=== PATIENT | male | born 1950 | race Caucasian/White ===

== ENCOUNTER 2019-01-26 07:34 | Outpatient (CLI) | payer OTHER ==
[~2019-01-26 07:34] MED LIST: CIPRO500 MG PO
[2019-01-30] MEDS ORDERED: CRESTOR10 MG PO (15:21)
[2019-01-30] MEDS ORDERED: ZIAC 5-6.25 MG1 EACH PO (15:21)
[2019-01-30] MEDS ORDERED: NORVASC2.5 M1 PO (15:21)
== END 2019-01-26 07:54 | disposition home or self-care (01) ==
LOC: LAB 07:34 → RAD 07:34 → LAB 07:54
DX: R19.4 Change in bowel habit (principal); K64.4 Residual hemorrhoidal skin tags; K64.3 Fourth degree hemorrhoids; I10 Essential (primary) hypertension

== ENCOUNTER 2019-02-08 05:18 | Day surgery (SDC) | payer OTHER ==
[~2019-02-08 05:18] MED LIST changes: +CRESTOR10 MG PO; +NORVASC2.5 M1 PO; +ZIAC 5-6.25 MG1 EACH PO
[2019-02-08] MEDS ORDERED: PERCOCET 5-3251 EACH PO (08:29)
[2019-02-08] MEDS ORDERED: RECTICARE30 GM TOP (08:29)
[2019-02-08] MEDS ORDERED: DICLOFENAC SODI75 MG PO (08:30)
== END 2019-02-08 14:30 | disposition home or self-care (01) ==
LOC: CIR.AMB 05:18
DX: K64.8 Other hemorrhoids (principal); K64.3 Fourth degree hemorrhoids; K64.4 Residual hemorrhoidal skin tags

== ENCOUNTER 2020-05-11 10:37 | Inpatient (IN) | payer OTHER ==
[~2020-05-11] VITALS: Ht 170.2 cm; Wt 140.0 kg
[~2020-05-11 10:37] MED LIST changes: +DICLOFENAC SODI75 MG PO; +PERCOCET 5-3251 EACH PO; +RECTICARE30 GM TOP
[2020-05-11] MEDS ORDERED: ZIAC 5-6.25 MG1 EACH (10:48)
[2020-05-11] MEDS ORDERED: AMLODIPINE-OLM1 EAC2 (10:48)
[2020-05-12] MEDS ORDERED: NORVASC2.5 MG (13:22)
[2020-05-12] MEDS ORDERED: XYZAL5 MG (13:22)
[2020-05-12] MEDS ORDERED: ASPERCREME76.5 GM (13:22)
[2020-05-12] MEDS ORDERED: ALLEGRA ALLERG180 MG (13:22)
== END 2020-05-13 09:31 | disposition home or self-care (01) | DRG 101 ==
LOC: ER 10:37 → MEDI 21:05
PROVIDERS: ADMIT Internal Medicine; ATTEND Internal Medicine
PROC: B020ZZZ Computerized Tomography (CT Scan) of Brain (ICD-10-PCS; principal; 2020-05-11)
PROC: B24BYZZ Ultrasonography of Heart with Aorta using Other Contrast (ICD-10-PCS; 2020-05-11)
PROC: B030ZZZ Magnetic Resonance Imaging (MRI) of Brain (ICD-10-PCS; 2020-05-11)
DX: R56.9 Unspecified convulsions (principal); I10 Essential (primary) hypertension; E78.5 Hyperlipidemia, unspecified; I69.30 Unspecified sequelae of cerebral infarction; Z20.822 Contact with and (suspected) exposure to COVID-19
CPT/HCPCS: 70544

== ENCOUNTER 2021-05-14 07:13 | Outpatient (CLI) | payer OTHER ==
[~2021-05-14 07:13] MED LIST changes: +ALLEGRA ALLERG180 MG; +AMLODIPINE-OLM1 EAC2; +ASPERCREME76.5 GM; +NORVASC2.5 MG; +XYZAL5 MG; +ZIAC 5-6.25 MG1 EACH
== END 2021-05-14 07:24 | disposition home or self-care (01) ==
LOC: LAB 07:13
DX: U07.1 COVID-19 (principal); B34.1 Enterovirus infection, unspecified

== ENCOUNTER 2021-05-15 07:23 | Outpatient (CLI) | payer OTHER | END 2021-05-15 07:27 | disposition home or self-care (01) | LOC: NUCLEAR 07:23 | PROVIDERS: ATTEND Internal Medicine | DX: I11.0 Hypertensive heart disease with heart failure (principal); I25.10 Atherosclerotic heart disease of native coronary artery without angina pectoris ==

== ENCOUNTER 2021-06-02 08:01 | Outpatient (CLI) | payer OTHER | END 2021-06-02 08:19 | disposition home or self-care (01) | LOC: NUCLEAR 08:01 | DX: C76.0 Malignant neoplasm of head, face and neck (principal) ==

== ENCOUNTER 2021-09-14 10:51 | Outpatient (CLI) | payer OTHER | END 2021-09-14 11:01 | disposition home or self-care (01) | LOC: TOM 10:51 | PROVIDERS: ATTEND Internal Medicine | DX: J44.9 Chronic obstructive pulmonary disease, unspecified (principal); R09.02 Hypoxemia; R91.8 Other nonspecific abnormal finding of lung field ==

== ENCOUNTER 2022-02-08 14:06 | Emergency (ER) | payer OTHER ==
[~2022-02-08] VITALS: Ht 177.8 cm; Wt 83.5 kg
== END 2022-02-08 19:35 | disposition home or self-care (01) ==
LOC: ER 14:06
DX: S29.9XXA Unspecified injury of thorax, initial encounter (principal); V03.99XA Pedestrian with other conveyance injured in collision with car, pick-up truck or van, unspecified whether traffic or nontraffic accident, initial encounter; Y93.55 Activity, bike riding; Y92.413 State road as the place of occurrence of the external cause; S69.91XA Unspecified injury of right wrist, hand and finger(s), initial encounter; E78.00 Pure hypercholesterolemia, unspecified; E03.9 Hypothyroidism, unspecified; I10 Essential (primary) hypertension; S02.19XA Other fracture of base of skull, initial encounter for closed fracture

== ENCOUNTER 2022-09-28 13:29 | Inpatient (IN) | payer OTHER ==
[~2022-09-28] VITALS: Ht 162.6 cm; Wt 68.0 kg
[2022-09-28] MEDS ORDERED: KEPPRA500 MG PO (13:53)
== END 2022-10-05 21:49 | disposition home or self-care (01) | DRG 195 ==
LOC: ER 13:29 → ICU-2 17:17 → ICU 09-29 17:49 → MEDJ 10-01 21:25
PROVIDERS: ADMIT Internal Medicine; ATTEND Internal Medicine
PROC: B020ZZZ Computerized Tomography (CT Scan) of Brain (ICD-10-PCS; principal; 2022-09-28)
PROC: B24BYZZ Ultrasonography of Heart with Aorta using Other Contrast (ICD-10-PCS; 2022-09-28)
PROC: BW241ZZ Computerized Tomography (CT Scan) of Chest and Abdomen using Low Osmolar Contrast (ICD-10-PCS; 2022-09-29)
DX: J18.9 Pneumonia, unspecified organism (principal); R56.9 Unspecified convulsions; J44.9 Chronic obstructive pulmonary disease, unspecified; R77.8 Other specified abnormalities of plasma proteins; E78.00 Pure hypercholesterolemia, unspecified; I10 Essential (primary) hypertension; F17.290 Nicotine dependence, other tobacco product, uncomplicated; F12.90 Cannabis use, unspecified, uncomplicated; F10.90 Alcohol use, unspecified, uncomplicated

== ENCOUNTER 2022-11-06 10:29 | Outpatient (CLI) | payer OTHER ==
[~2022-11-06 10:29] MED LIST changes: +KEPPRA500 MG PO
== END 2022-11-06 10:34 | disposition home or self-care (01) ==
LOC: RAD 10:29
PROVIDERS: ATTEND Internal Medicine Pulmonary Disease
DX: J44.1 Chronic obstructive pulmonary disease with (acute) exacerbation (principal)

== ENCOUNTER 2023-02-26 10:54 | Inpatient (IN) | payer OTHER ==
[~2023-02-26] VITALS: Ht 177.8 cm; Wt 79.4 kg
[2023-02-26 11:28] LABS: HEMATOCRIT 44.9 % (39.0-48.0); HEMOGLOBIN 14.9 g/dL (13-16.00); MEAN CELL VOLUME 90.3 fL (80.0-100.00); MEAN CORPUSCULAR HGB CONC 33.3 g/dl (32.0-36.0); PLATELET COUNT 295 K/uL (150-450); RED BLOOD COUNT 4.97 M/uL (4.00-6.00); RED CELL DISTRIBUTION WIDTH 14.5 % (11.5-14.5)
[2023-02-26] MEDS ORDERED: ADULT LOW DOSE81 M1 PO (11:37)
[2023-02-26 11:46] LABS: ALBUMIN 4.3 gm/dL (3.4-5.0); BILIRUBIN TOTAL 0.54 mg/dL (0.3-1.2); CALCIUM 8.9 mg/dL (8.5-10.1); CREATININE SERUM 1.35 mg/dL (0.70-1.30); GFR 51.66; POTASSIUM 4.06 mEq/L (3.5-5.1); TOTAL PROTEIN 8.3 gm/dL (6.4-8.2)
[2023-02-26 11:47] LABS: INR 1.04; PARTIAL THROMBOPLASTIN TIME 25.7 SECONDS (22.0-34.0); PROTHROMBIN TIME 10.9 SECONDS (9.0-11.5)
[2023-02-26 12:05] LABS: ABG PH 7.306 (7.35-7.45); ABG PO2 629.7 mmHg (80-100); ABG pCO2 32.8 mmHg (35-45); BASE EXCESS -9.1 mmol/l; allen test SATISFACTORY; puncture site RADIAL RIGHT
[2023-02-26 12:06] LABS: o2 100 %
[2023-02-26 12:27] LABS: URINE APPEARANCE Clear; URINE BILIRRUBIN Negative (NEGATIVE); URINE BLOOD Small; URINE COLOR Yellow; URINE LEUKOCYTE Negative; URINE NITRATE Negative; URINE UROBILINOGEN 0.2 E.U./dl
[2023-02-26 12:28] LABS: URINE EPITHELIAL CELLS 4.7 uL (0.0-38.8); URINE RBC 16.8 uL (0.0-20.8); URINE WBC 10.2 uL (0.0-23.2)
[2023-02-26 12:29] LABS: URINE GLUCOSE 500 MG/DL (NEGATIVE); URINE PROTEIN 300 (NEGATIVE)
[2023-02-27 08:19] LABS: HEMATOCRIT 40.4 % (39.0-48.0); HEMOGLOBIN 13.9 g/dL (13-16.00); MEAN CORPUSCULAR HEMOGLOBIN 30.3 pg (27.00-32.0); MEAN CORPUSCULAR HGB CONC 34.4 g/dl (32.0-36.0); PLATELET COUNT 231 K/uL (150-450); RED BLOOD COUNT 4.59 M/uL (4.00-6.00); RED CELL DISTRIBUTION WIDTH 14.1 % (11.5-14.5)
[2023-02-27 11:13] LABS: ABG PH 7.481 (7.35-7.45); ABG PO2 271.8 mmHg (80-100); ABG pCO2 31.7 mmHg (35-45); BASE EXCESS 0.5 mmol/l; SaO2 99.9 %
[2023-02-27 11:14] LABS: BICARBONATE 23.1 mmol/l (23-25); Tco2 24.1 mmol/l
[2023-02-27 11:15] LABS: o2 50 %
[2023-02-27 11:17] LABS: allen test SATISFACTORY; puncture site RADIAL LEFT
[2023-02-27 14:11] LABS: COCAINE NEGATIVE (NEGATIVE); METHADONE NEGATIVE (NEGATIVE); OPIATES NEGATIVE (NEGATIVE); THC ( Cannabinoids) POSITIVE (NEGATIVE)
[2023-02-28 09:52] LABS: ABG PO2 184.2 mmHg (80-100); ABG pCO2 37.1 mmHg (35-45); BASE EXCESS -0.5 mmol/l; BICARBONATE 23.5 mmol/l (23-25); SaO2 99.6 %; Tco2 24.7 mmol/l
[2023-02-28 09:53] LABS: allen test SATISFACTORY; o2 35 %; puncture site RADIAL LEFT
[2023-02-28 14:36] LABS: ABG PH 7.428 (7.35-7.45); ABG PO2 168.6 mmHg (80-100); ABG pCO2 38.6 mmHg (35-45)
[2023-02-28 14:37] LABS: BASE EXCESS 0.7 mmol/l; BICARBONATE 24.9 mmol/l (23-25); SaO2 99.5 %; Tco2 26.1 mmol/l
[2023-02-28 14:38] LABS: allen test SATISFACTORY; o2 35 %; puncture site RADIAL RIGHT
[2023-02-28 17:43] LABS: ABG PH 7.441 (7.35-7.45); ABG PO2 153.1 mmHg (80-100); ABG pCO2 34.5 mmHg (35-45); BASE EXCESS -0.5 mmol/l; SaO2 99.4 %; allen test SATISFACTORY; o2 50 %; puncture site RADIAL LEFT
[2023-03-02 11:00] LABS: ABG PH 7.513 (7.35-7.45); ABG PO2 89.1 mmHg (80-100); ABG pCO2 34.9 mmHg (35-45); BASE EXCESS 4.7 mmol/l; BICARBONATE 27.4 mmol/l (23-25)
[2023-03-02 11:01] LABS: Tco2 28.5 mmol/l; o2 21 %; puncture site RADIAL LEFT
[2023-03-02 11:02] LABS: SaO2 97.8 %
[2023-03-02 11:09] LABS: allen test SATISFACTORY
== END 2023-03-02 17:15 | disposition home or self-care (01) | DRG 208 ==
LOC: ER 10:54 → ICU-2 20:50 → MEDJ 03-01 13:01
PROVIDERS: General Practice; Internal Medicine; ADMIT Internal Medicine; ATTEND Internal Medicine
PROC: BB24ZZZ Computerized Tomography (CT Scan) of Bilateral Lungs (ICD-10-PCS; 2023-02-26)
PROC: BW28ZZZ Computerized Tomography (CT Scan) of Head (ICD-10-PCS; 2023-02-26)
PROC: 5A1945Z Respiratory Ventilation, 24-96 Consecutive Hours (ICD-10-PCS; principal; 2023-02-27)
PROC: 02HV33Z Insertion of Infusion Device into Superior Vena Cava, Percutaneous Approach (ICD-10-PCS; 2023-02-28)
PROC: 3E0F7GC Introduction of Other Therapeutic Substance into Respiratory Tract, Via Natural or Artificial Opening (ICD-10-PCS; 2023-02-28)
PROC: B246ZZZ Ultrasonography of Right and Left Heart (ICD-10-PCS; 2023-03-01)
PROC: 4A12X4Z Monitoring of Cardiac Electrical Activity, External Approach (ICD-10-PCS; 2023-03-01)
DX: J96.91 Respiratory failure, unspecified with hypoxia (principal); G40.911 Epilepsy, unspecified, intractable, with status epilepticus; G93.1 Anoxic brain damage, not elsewhere classified; R79.89 Other specified abnormal findings of blood chemistry; I10 Essential (primary) hypertension; F12.90 Cannabis use, unspecified, uncomplicated; R41.82 Altered mental status, unspecified; E78.5 Hyperlipidemia, unspecified

== ENCOUNTER 2024-01-26 16:34 | Emergency (ER) | payer OTHER ==
[~2024-01-26] VITALS: Ht 177.8 cm; Wt 78.0 kg
[~2024-01-26 16:34] MED LIST changes: +ADULT LOW DOSE81 M1 PO
[2024-01-26] MEDS ORDERED: CRESTOR40 MG PO (16:44)
[2024-01-26] MEDS ORDERED: BISOPROLOL-HCT1 EACH PO (16:44)
[2024-01-26] MEDS ORDERED: KETOROLAC TROMETHAMINE 60 MG VIAL IM ONE (17:15)
[2024-01-26] MEDS ORDERED: DICLOFENAC SODI75 MG PO (18:12)
[2024-01-26] MEDS ORDERED: NORFLEX100MG PO (18:12)
== END 2024-01-26 18:14 | disposition home or self-care (01) ==
LOC: ER 16:36
DX: M54.9 Dorsalgia, unspecified (principal); I10 Essential (primary) hypertension; Z91.030 Bee allergy status
CPT/HCPCS: 72100; 73502; 96372; 99283; J1885

== ENCOUNTER 2024-02-14 11:53 | Outpatient (CLI) | payer OTHER ==
[~2024-02-14 11:53] MED LIST changes: +BISOPROLOL-HCT1 EACH PO; +CRESTOR40 MG PO; +NORFLEX100MG PO
== END 2024-02-14 11:56 | disposition home or self-care (01) ==
LOC: RAD 11:53
PROVIDERS: ATTEND Orthopaedic Surgery
DX: M25.552 Pain in left hip (principal); S32.512A Fracture of superior rim of left pubis, initial encounter for closed fracture; S32.592A Other specified fracture of left pubis, initial encounter for closed fracture

== ENCOUNTER 2024-03-27 15:54 | Outpatient (CLI) | payer OTHER | END 2024-03-27 15:59 | disposition home or self-care (01) | LOC: RAD 15:54 | PROVIDERS: ATTEND Orthopaedic Surgery | DX: S32.512D Fracture of superior rim of left pubis, subsequent encounter for fracture with routine healing (principal); S32.592D Other specified fracture of left pubis, subsequent encounter for fracture with routine healing ==

== ENCOUNTER 2024-06-19 10:14 | Outpatient (CLI) | payer OTHER | END 2024-06-19 10:17 | disposition home or self-care (01) | LOC: NUCLEAR 10:14 | PROVIDERS: ATTEND Orthopaedic Surgery | DX: M81.0 Age-related osteoporosis without current pathological fracture (principal) ==

== ENCOUNTER 2024-06-19 11:02 | Outpatient (CLI) | payer OTHER | END 2024-06-19 11:06 | disposition home or self-care (01) | LOC: RAD 11:02 | PROVIDERS: ATTEND Orthopaedic Surgery | DX: M25.532 Pain in left wrist (principal) ==